=== PATIENT | male | born 1965 | race Caucasian/White ===

== ENCOUNTER 2021-03-14 00:49 | Inpatient (IN) ==
[2021-03-14] MEDS ORDERED: Ondansetron 4 MG/2 ML VIAL IVP ONE (01:33)
[2021-03-14] MEDS ORDERED: 0.9 % Sodium Chloride 1,000 ML IVC SCH ×2 (01:45→05:10)
[2021-03-14 02:05] LABS: Basophils % 0.1 %; Hematocrit 49.9 % (37.5-50.1); Hemoglobin 16.4 g/dL (12.9-16.9); Immature Granulocytes % 0.4 % (0-4); Lymphocytes # 0.3 K/mcL (0.6-4.6); Lymphocytes % 2.7 %; Mean Corpuscular HGB Conc 32.9 g/dL (31.6-35.5); Mean Corpuscular Hemoglobin 28.6 pg (28.0-33.3); Mean Corpuscular Volume 87.1 fL (83.0-100.0); Mean Platelet Volume 10.8 fL (9.4-12.4); Monocytes # 0.7 K/mcL (0.0-1.3); Monocytes % 6.2 %; Neutrophils # 10.2 K/mcL (1.6-8.9); Platelet Count 247 K/mcL (140-400); Red Blood Count 5.73 M/mcL (4.19-5.50); Red Cell Distribution Width 13.9 % (11.5-14.5); Segmented Neutrophils % 90.6 %; White Blood Count 11.3 K/mcL (4.3-11.1)
[2021-03-14 02:12] LABS: INR 1.2; Prothrombin Time 13.9 Seconds (9.4-12.1)
[2021-03-14 02:15] LABS: Activated Partial Thrombo Time 26.1 Seconds (26.0-36.0)
[2021-03-14 02:22] LABS: Alanine Aminotransferase 247 Units/L (7-52); Albumin 3.4 g/dL (3.5-5.7); Alkaline Phosphatase 147 Units/L (34-104); Aspartate Amino Transferase 220 Units/L (13-39); BUN/Creatinine Ratio 27 (6-26); Bilirubin,Direct 1.1 mg/dL (0.0-0.2); Bilirubin,Indirect 0.6 mg/dL (0.0-1.0); Bilirubin,Total 1.7 mg/dL (0.3-1.0); Blood Urea Nitrogen 26 mg/dL (6-20); Calcium 8.8 mg/dL (8.6-10.3); Carbon Dioxide 29 mEq/L (23-29); Chloride 96 mEq/L (98-107); Globulin 3.4 g/dL (2.4-3.5); Glucose 152 mg/dL (70-105); Lactate Dehydrogenase 652 Units/L (140-271); Magnesium 2.2 mg/dL (1.6-2.6); Osmolality,Calculated 290 (280-300); Phosphorous 2.1 mg/dL (2.7-4.5); Potassium 3.7 mEq/L (3.5-5.1); Sodium 136 mEq/L (136-145); Total Protein 6.8 g/dL (6.4-8.9); Troponin I 0.03 ng/mL (< 0.04); eGFR For African Americans > 60 (> 60); eGFR For Non-African Americans > 60 (> 60)
[2021-03-14] MEDS ORDERED: Dexamethasone Sodium Phos/PF 10 MG/ML VIAL IVP ONE (02:27)
[2021-03-14] MEDS ORDERED: Isovue-370 500 ML BOTTLE IVP ONE (04:23)
[2021-03-14] MEDS ORDERED: *HR* Enoxaparin 40 MG/0.4 ML SYRINGE SQ SCH ×2 (06:00)
[2021-03-14 12:31] LABS: C-Reactive Protein 82 mg/L (Less than 10)
[2021-03-14 13:02] LABS: Hepatitis B Surface Antigen Nonreactive (Nonreactive)
[2021-03-14 13:08] LABS: Ferritin > 1500 ng/mL (20-250)
[2021-03-14 13:31] LABS: Hepatitis C Virus Antibody Nonreactive (Nonreactive)
[2021-03-14 13:32] LABS: Hepatitis B Core IgM Nonreactive (Nonreactive)
[2021-03-14 13:33] LABS: Hepatitis A Antibody IgM Nonreactive (Nonreactive)
[2021-03-14] MEDS ORDERED: levoFLOXacin 750 MG/150 ML 750 MG/150 ML BAG IVPB SCH (15:15)
[2021-03-14 20:11] VITALS: BP 138/80; PULSE 87; TEMP 98.4
[2021-03-14 20:34] VITALS: RESP 22; O2SAT 92
== END 2021-03-14 21:45 | disposition other institution (70) | DRG 177 ==
LOC: EMEROOGRE 00:49 → INPGRE 00:49
PROVIDERS: ADMIT Family Medicine; ATTEND Family Medicine